=== PATIENT | male | born 1950 | race Caucasian/White ===

== ENCOUNTER 2019-01-28 09:04 | Inpatient (IN) | payer BC, OTHER ==
[2019-01-23 14:39] VITALS: BMI 39.5
--- NOTE | 2019-01-28 07:59 | HP ---
[facility] - Chief Complaint Chief Complaint: right knee pain - Past Medical History Allergies/Adverse Reactions: Allergies Allergy/AdvReac Type Severity Reaction Status Date / Time No Known Allergies Allergy Verified 08/16/11 15:55 - Current Medications Current Medications: Home Medications Medication Instructions Recorded Phenytoin Sodium Extended 300 mg PO DAILY 08/16/11 [Dilantin] Aspirin [Ecotrin] 81 mg PO DAILY 01/23/19 Lisinopril 20 mg PO DAILY 01/23/19 Metoprolol Succinate 25 mg PO BID 01/23/19 Phenytoin Na Extended [Dilantin -] 400 mg PO HS 01/23/19 Rosuvastatin Calcium 5 mg PO DAILY 01/23/19 [facility] Physical Exam - Physical Examination General Appearance: Well Nourished, Well Developed, Alert & Oriented x3 ENT: Clear Lung: Normal air movement Heart: Regular rate & rhythm Extremities: Other (right knee- + swelling, + ttp ,decr rom, nvi, xray show grade 4 tricompartmental djd) Neurological: Intact, Alert, Oriented Satellite Impression/Plan - Impression/Plan Impression: right knee djd Operative Procedure: right eduarda tkr Date to be Performed: 01/28/19
[2019-01-28] MEDS ORDERED: TRANEXAMIC ACID 1000 MG/10 ML VIAL IVPUSH ONE (09:26)
[2019-01-28] MEDS ORDERED: CELECOXIB 200 MG CAPSULE PO ONE (09:26)
[2019-01-28] MEDS ORDERED: CEFAZOLIN 2 GM in DEXTROSE 5%-WATER - 50 ML IVPB ONE (09:26)
[2019-01-28] MEDS ORDERED: MIDAZOLAM HCL 2 MG/2 ML SINGLE DOSE VIAL ONE ×3 (09:29→12:39)
[2019-01-28] MEDS ORDERED: BUPIVACAINE LIPOSOME/PF (EXPAREL) 266 MG/20 ML VIAL ONE (09:29)
[2019-01-28] MEDS ORDERED: SODIUM CHLORIDE 0.9% P/F 10 ML VIAL IJ ONE ×2 (09:30→12:26)
[2019-01-28] MEDS ORDERED: ceFAZolin SODIUM 1 GM VIAL ONE (10:59)
[2019-01-28] MEDS ORDERED: VANCOMYCIN 1,000 MG VIAL (RESTRICTED TO ID ONLY) ONE (10:59)
[2019-01-28] MEDS ORDERED: ONDANSETRON 4 MG/2 ML VIAL IVPUSH PRN ×2 (11:34→13:39)
[2019-01-28] MEDS ORDERED: MAGNESIUM HYDROX 2400MG/30ML ORAL SUSPENSION 30 ML CUP PO PRN (11:34)
[2019-01-28] MEDS ORDERED: MAG HYDROX/AL HYDROX/SIMETH 30 ML UNIT-DOSE CUP PO PRN (11:34)
[2019-01-28] MEDS ORDERED: LACTATED RINGERS SOLUTION 1,000 ML IV SCH (11:45)
[2019-01-28] MEDS ORDERED: ePHEDrine SULFATE 50 MG/1 ML AMPULE ONE (12:13)
[2019-01-28] MEDS ORDERED: PHENYLEPHRINE HCL 10 MG/1 ML SINGLE DOSE VIAL ONE (12:26)
[2019-01-28] MEDS ORDERED: VANCOMYCIN 1,000 MG VIAL (RESTRICTED TO ID ONLY) IVPB ONE (13:07)
--- NOTE | 2019-01-28 13:32 | OP ---
Operative Note - Note: Operative Date: 01/28/19 (esa) Pre-Operative Diagnosis: right knee djd Operation: right eduarda tkr Post-Operative Diagnosis: Same as Pre-op Surgeon: Anurag Cloud Residential Glazier: Daniel Whittaker Anesthesiologist/BEADING MACHINE OPERATOR: Ebenezer Ariza Anesthesia: Spinal, Local Specimens Removed: bone fragments Estimated Blood Loss (mls): 150
[2019-01-28] MEDS ORDERED: oxyCODONE HCL 5 MG TABLET PO PRN (13:39)
[2019-01-28] MEDS ORDERED: PROMETHAZINE HCL 25 MG/1 ML VIAL IVPUSH PRN (13:39)
[2019-01-28] MEDS ORDERED: traMADol HCL 50 MG TABLET PO PRN (13:39)
--- NOTE | 2019-01-28 17:20 | PN ---
Progress Note, Physician Chief Complaint: Right Total Knee Replacement History of Present Illness: Previous notes and events reviewed awake and alert NAD POD#0 R TKR denies chest pain or SOB - Current Medication List Current Medications: Active Medications Acetaminophen (Tylenol -) 650 mg PO Q6H [facility] Stop: 01/31/19 20:59 Al Hydroxide/Mg Hydroxide (Mylanta Oral Suspension -) 30 ml PO Q4H PRN PRN Reason: DYSPEPSIA Aspirin (Asa -) 325 mg PO DAILY@0800 [facility] Fentanyl (Sublimaze Injection -) 50 mcg IVPUSH [id number] PRN PRN Reason: PAIN-PACU ORDER X 4 DOSES ONLY Cefazolin Sodium 3 gm/ (Dextrose) 100 mls @ 100 mls/hr IVPB Q8H [facility] Stop: 01/29/19 03:59 Lactated Ringer's (Lactated Ringers Solution) 1,000 mls @ 125 mls/hr IV ASDIR [facility] Stop: 01/29/19 06:00 Lisinopril (Prinivil) 20 mg PO DAILY [facility] Magnesium Hydroxide (Milk Of Magnesia -) 30 ml PO PRN PRN PRN Reason: CONSTIPATION Metoprolol Succinate (Toprol Xl -) 25 mg PO BID [facility] Multivitamins/Minerals/Vitamin C (Tab-A-Vit -) 1 tab PO DAILY [facility] Ondansetron HCl (Zofran Injection) 4 mg IVPUSH Q6H PRN PRN Reason: NAUSEA Ondansetron HCl (Zofran Injection) 4 mg IVPUSH Q6H PRN PRN Reason: NAUSEA AND/OR VOMITING Oxycodone HCl (Roxicodone -) 5 mg PO Q3H PRN PRN Reason: PAIN LEVEL 4-6 Last Admin: 01/28/19 16:36 Dose: 5 mg Oxycodone HCl (Roxicodone -) 10 mg PO Q3H PRN PRN Reason: PAIN LEVEL 7-10 Pantoprazole Sodium (Protonix -) 40 mg PO DAILY [facility] Phenytoin Sodium (Dilantin -) 400 mg PO HS [facility] Phenytoin Sodium (Dilantin -) 300 mg PO DAILY [facility] Promethazine HCl (Phenergan Injection -) 12.5 mg IVPUSH Q6H PRN PRN Reason: NAUSEA-FOR RESCUE AFTER 15 MIN Rosuvastatin Calcium (Crestor -) 5 mg PO DAILY [facility] Senna/Docusate Sodium (Pericolace -) 2 tablet PO BID [facility] Tramadol HCl (Ultram -) 50 mg PO Q3H PRN PRN Reason: PAIN LEVEL 1 - 3 - Objective Vital Signs: Vital Signs Temperature 97.8 F 01/28/19 14:41 Pulse Rate 86 01/28/19 14:41 Respiratory Rate 16 01/28/19 14:41 Blood Pressure 120/64 01/28/19 14:41 O2 Sat by Pulse Oximetry (%) 96 01/28/19 14:41 Constitutional: Yes: No Distress, Calm Eyes: Yes: Conjunctiva Clear HENT: Yes: Atraumatic Cardiovascular: Yes: Regular Rate and Rhythm Respiratory: Yes: Regular, CTA Bilaterally Gastrointestinal: Yes: Normal Bowel Sounds, Soft Musculoskeletal: Yes: Muscle Weakness Extremities: Yes: WNL Edema: No Wound/Incision: Yes: Dressing Dry and Intact Neurological: Yes: Alert, Oriented Psychiatric: Yes: Alert, Oriented Problem List - Problems (1) Status post total right knee replacement Assessment/Plan: -Ortho on board -POD #0 L TKR -incentive spirometer -pain control -PT -dvt ppx -Cefazolin Code(s): Z96.651 - PRESENCE OF RIGHT ARTIFICIAL KNEE JOINT (2) HTN (hypertension) Assessment/Plan: -Lisinopril Code(s): I10 - ESSENTIAL (PRIMARY) HYPERTENSION (3) Seizure Assessment/Plan: -Dilantin Code(s): R56.9 - UNSPECIFIED CONVULSIONS Assessment/Plan see problem list dvt ppx
[2019-01-28] MEDS: oxyCODONE HCL 5 MG TABLET PO PRN (19:18)
[2019-01-28] MEDS: CEFAZOLIN 3 GM in DEXTROSE 5%-WATER 100 ML IVPB SCH (19:25)
[2019-01-28] MEDS: KETOROLAC TROMETHAMINE 30 MG/1 ML VIAL IVPUSH SCH (21:08)
[2019-01-28] MEDS: ACETAMINOPHEN 325 MG TABLET (FP) PO SCH (21:08)
[2019-01-28] MEDS: SENNOSIDES/DOCUSATE COMBO (SENNA PLUS) TABLET (UD) PO SCH (21:09)
[2019-01-28] MEDS: metoPROLOL SUCCINATE 25 MG TAB.SR.24H (FP) PO SCH (21:09)
[2019-01-28] MEDS: PHENYTOIN NA EXTENDED 100 MG CAPSULE (FP) PO SCH (21:09)
[2019-01-29] MEDS ORDERED: ceFAZolin SODIUM 1 GM VIAL ONE (03:05)
[2019-01-29] MEDS ORDERED: DEXTROSE 5%-WATER 100 ML IVPB ONE (03:05)
[2019-01-29] MEDS: ACETAMINOPHEN 325 MG TABLET (FP) PO SCH ×4 (03:14→21:12)
[2019-01-29] MEDS: KETOROLAC TROMETHAMINE 30 MG/1 ML VIAL IVPUSH SCH ×4 (03:15→21:11)
[2019-01-29] MEDS: CEFAZOLIN 3 GM in DEXTROSE 5%-WATER 100 ML IVPB SCH (03:15)
[2019-01-29] MEDS: oxyCODONE HCL 5 MG TABLET PO PRN ×3 (06:23→17:58)
[2019-01-29 07:35] LABS: HEMATOCRIT 38.3 % (35.4-49); HEMOGLOBIN 12.9 GM/dl (11.7-16.9); MCH 30.6 pg (25.7-33.7); MCHC 33.7 g/dl (32.0-35.9); MEAN CELL VOLUME 90.9 fl (80-96); MEAN PLT VOLUME 8.5 fl (7.5-11.1); PLATELET COUNT 180 K/MM3 (134-434); RBC 4.22 M/mm3 (4.00-5.60); RDW 12.5 % (11.9-15.9); WHITE BLOOD COUNT 10.2 K/mm3 (4.0-10.8)
[2019-01-29] MEDS: ASPIRIN 325 MG TABLET PO SCH (08:04)
--- NOTE | 2019-01-29 08:53 | SPEC ---
DATE OF OPERATION: 01/28/2019 PREOPERATIVE DIAGNOSIS: Degenerative joint disease, right knee. POSTOPERATIVE DIAGNOSIS: Degenerative joint disease, right knee. PROCEDURE: Right total knee replacement with robotic-assisted navigation (Makoplasty). SURGICAL ATTENDING: Anurag Cloud M.D. BEND SORTER: Cherry Dimas ANESTHESIA: Regional and spinal. CLOSURE: A Triathlon knee system with a 6 femur, 6 tibia, 11 polyethylene, 35 patella, number 1 Vicryl to fascia, 0 and 2-0 subcutaneous, 3-0 Monocryl subcuticular with skin glue for skin, 4-0 undyed Vicryl for pin sites. ESTIMATED BLOOD LOSS: Approximately 100 mL. COMPLICATIONS: None. CONDITION: To recovery room in stable condition. DESCRIPTION OF OPERATIVE PROCEDURE: Patient was taken to the operating room on January 28, 2019. Regional and general anesthesia was administered by the anesthesiologist. IV Kefzol and TXA were administered by the anesthesiologist. Well-padded pneumatic tourniquet was placed on the proximal thigh. The right lower extremity was prepped and draped in the usual sterile fashion. The leg was exsanguinated with an Esmarch bandage, and tourniquet was inflated to 275 mmHg. A 12 to 15-cm longitudinal midline incision was incised while centered over the patella. The dissection was carried down to the level of the extensor mechanism with sufficient flaps made to adequately perform the procedure. A medial parapatellar arthrotomy was then performed. We made a cuff of tissue on the patella for later closure. The patella was inverted, the knee was flexed up. The fat pad was excised. The subperiosteal dissection was on the anteromedial proximal tibia around towards the direction of the MCL. The ACL and the PCL were transected and debrided. The meniscal remnants of the medial and lateral meniscus were debrided and removed. This allowed the knee to be able to "be brought forward." The checkpoints were malleted into the tibia and into the femur. Two threaded pins were drilled anteroposteriorly proximal to the knee through the previous incision, through the anterior cortex, then just engaging the posterior cortex. To these pins was assembled the femoral navigation array. One handbreadth below the tibial tubercle, 2 stab incisions were used to drill 2 threaded pins in parallel fashion into the tibia, again through the anterior cortex and just engaging the posterior cortex. To these pins was fastened the tibial arrays. The knee was then registered with the navigation device with center of rotation of the hip, medial and lateral malleoli, both checkpoints, and multiple points on both the femur and the tibia to ensure excellent registration. The navigation device was directed off the "top of the bubbles" on both the femur and the tibia. The navigation passed within less than 0.5 mm to plan. The knee was then thoroughly inspected to remove all osteophytes both medially, laterally, and on the femur and the tibia, and whatever osteophytes were available for dissection. The knee was then taken to extension and to flexion, and stressed in both varus and valgus to assess flexion gaps. The virtual position of the components on the navigation device were then manipulated to optimize the position and to ensure equal gaps in both flexion and extension, and both medially and laterally. The robot was then brought into the field and was registered. The cuts were then made both on the femur and on the tibia as to plan. All osteophytes posteriorly were then removed as well. The gaps were then measured again in flexion and extension to be equal in both flexion and extension and medial and laterally. The femoral notch was then made, as we were doing a posterior stabilizing component, with the appropriate sized box. Trial reduction of the femur achieved excellent [id number] fit. A tibial baseplate of appropriate polyethylene thickness was "floated in the knee." It was ensured to be in the excellent position by navigation devices and was pinned in place. The knee was taken through a range of motion, and found to have excellent stability throughout flexion and extension. The patella was calibrated for thickness and osteotomized down to the appropriate level. The appropriate lollipop was used to drill the lug holes in the patella and the trial button was applied. The knee was taken through a range of motion and found to have excellent tracking of the patella, and patella from full extension to full flexion. Trial components were removed, the keel was punched and drilled, and a sclerotic bone on the tibia was drilled to help with cement interdigitation. The knee was thoroughly irrigated with the pulse antibiotic screen tender helper. The real components were then cemented in using monitored arrangement cement techniques with antibiotic cement, and pressurization and extension. After the cement was hardened, the knee was thoroughly inspected to remove any extra cement. The real polyethylene component was then clipped into place. Range of motion, stability, and tracking were as described earlier. The checkpoints and the pins were removed. The knee was thoroughly irrigated with antibiotic irrigation. Vancomycin powder was placed into the knee for antibiotic prophylaxis. The medial parapatellar arthrotomy was then closed using number 1 Vicryl interrupted suture. After closure of the deep layer, the knee was taken through a range of motion, and found to have excellent stability of the patella with no dislocation and no undue tension on the repair. The subcutaneous was pulse antibiotic irrigated, and was then closed with 2-0 Vicryl, 3-0 Monocryl subcuticular with the skin glue for the skin. The distal tibial pin site was irrigated thoroughly as well and then closed with 4-0 undyed Vicryl. A sterile Aquacel dressing was applied, followed by a Morton dressing. Tourniquet was deflated. Total tourniquet time was approximately 75 minutes. No complications. Patient was awakened from anesthesia and transferred to recovery room in stable condition. Postoperative x-rays revealed excellent position of the components. Nan [id number]
--- NOTE | 2019-01-29 08:54 | PN ---
Progress Note (short form) - Note Progress Note: Post op day#1.S/P Right total knee MAKOplasty under spinal anesthesia with adductor canal and selective tibial N block uneventful.Patient stable and c/o pain score of 5-6/10 for which she is on medication.No any anesthesia related problem.Patient Dc from the anesthesia care.
[2019-01-29] MEDS: metoPROLOL SUCCINATE 25 MG TAB.SR.24H (FP) PO SCH ×2 (09:04→21:11)
[2019-01-29] MEDS: PHENYTOIN NA EXTENDED 100 MG CAPSULE (FP) PO SCH ×2 (09:04→21:11)
[2019-01-29] MEDS: PANTOPRAZOLE 40 MG TABLET (FP) PO SCH (09:04)
[2019-01-29] MEDS: SENNOSIDES/DOCUSATE COMBO (SENNA PLUS) TABLET (UD) PO SCH ×2 (09:04→22:56)
[2019-01-29] MEDS: MULTIVITAMINS (DAILY MVI) TABLET (FP) PO SCH (09:04)
[2019-01-29] MEDS: LISINOPRIL 20 MG TABLET (FP) PO SCH (09:04)
[2019-01-29] MEDS: ROSUVASTATIN CA 5 MG TABLET (FP) PO SCH (09:04)
--- NOTE | 2019-01-29 09:08 | PN ---
Progress Note (short form) - Note Progress Note: Ortho Pt seen and examined s/p right eduarda tkr pod #1 Selected Entries 01/29/19 08:57 Temperature 99.2 F Pulse Rate 82 Respiratory 14 Rate Blood Pressure 142/70 Laboratory Tests 01/29/19 07:00 WBC 10.2 Hgb 12.9 Hct 38.3 Plt Count 180 dressing c/d/i, calf soft, nt rom 0-30, nvi a/p PT dvt ppx pain control d/c home tomorrow if stable
--- NOTE | 2019-01-29 09:08 | PN ---
Progress Note, Physician Chief Complaint: AWAKE ALERT SITTING UP IN A CHAIR C/O PAIN TO RIGHT KNEE DENIES CP/SOB +URINE OUTPUT NO BOWEL MOVEMENT YET - Current Medication List Current Medications: Active Medications Acetaminophen (Tylenol -) 650 mg PO Q6H [facility] Stop: 01/31/19 20:59 Last Admin: 01/29/19 03:14 Dose: 650 mg Al Hydroxide/Mg Hydroxide (Mylanta Oral Suspension -) 30 ml PO Q4H PRN PRN Reason: DYSPEPSIA Aspirin (Asa -) 325 mg PO DAILY@0800 [facility] Last Admin: 01/29/19 08:04 Dose: 325 mg Ketorolac Tromethamine (Toradol Injection -) 30 mg IVPUSH Q6H [facility] Stop: 02/02/19 21:14 Last Admin: 01/29/19 03:15 Dose: 30 mg Lisinopril (Prinivil) 20 mg PO DAILY [facility] Magnesium Hydroxide (Milk Of Magnesia -) 30 ml PO PRN PRN PRN Reason: CONSTIPATION Metoprolol Succinate (Toprol Xl -) 25 mg PO BID [facility] Last Admin: 01/28/19 21:09 Dose: 25 mg Multivitamins/Minerals/Vitamin C (Tab-A-Vit -) 1 tab PO DAILY [facility] Ondansetron HCl (Zofran Injection) 4 mg IVPUSH Q6H PRN PRN Reason: NAUSEA Oxycodone HCl (Roxicodone -) 5 mg PO Q3H PRN PRN Reason: PAIN LEVEL 4-6 Last Admin: 01/28/19 16:36 Dose: 5 mg Oxycodone HCl (Roxicodone -) 10 mg PO Q3H PRN PRN Reason: PAIN LEVEL 7-10 Last Admin: 01/29/19 06:23 Dose: 10 mg Pantoprazole Sodium (Protonix -) 40 mg PO DAILY [facility] Phenytoin Sodium (Dilantin -) 400 mg PO HS [facility] Last Admin: 01/28/19 21:09 Dose: 400 mg Phenytoin Sodium (Dilantin -) 300 mg PO DAILY [facility] Rosuvastatin Calcium (Crestor -) 5 mg PO DAILY [facility] Senna/Docusate Sodium (Pericolace -) 2 tablet PO BID [facility] Last Admin: 01/28/19 21:09 Dose: 2 tablet Tramadol HCl (Ultram -) 50 mg PO Q3H PRN PRN Reason: PAIN LEVEL 1 - 3 Last Admin: 01/28/19 17:58 Dose: 50 mg - Objective Vital Signs: Vital Signs Temperature 99.2 F 01/29/19 08:57 Pulse Rate 82 01/29/19 08:57 Respiratory Rate 14 01/29/19 08:57 Blood Pressure 142/70 01/29/19 08:57 O2 Sat by Pulse Oximetry (%) 97 01/29/19 06:00 Constitutional: Yes: Mild Distress Cardiovascular: Yes: Regular Rate and Rhythm Respiratory: Yes: WNL Gastrointestinal: Yes: Soft, Abdomen, Obese Genitourinary: Yes: WNL Musculoskeletal: Yes: Other Extremities: Yes: Other Integumentary: Yes: WNL Wound/Incision: Yes: Dressing Dry and Intact Neurological: Yes: WNL ...Motor Strength: RLE Psychiatric: Yes: WNL Labs: CBC, BMP 01/29/19 07:00 Problem List - Problems (1) HTN (hypertension) Code(s): I10 - ESSENTIAL (PRIMARY) HYPERTENSION (2) Seizure Code(s): R56.9 - UNSPECIFIED CONVULSIONS (3) Status post total right knee replacement Code(s): Z96.651 - PRESENCE OF RIGHT ARTIFICIAL KNEE JOINT Assessment/Plan NEURO CHECKS Q 4HRS FOR SEIZURE PRECAUTION PAIN CONTROL PT EVAL/OOB-CHAIR HOME FOR DISPOSITION WITH ROBOTICS TECHNICIAN/PT F/U WITH YOUR PMD
[2019-01-30] MEDS: oxyCODONE HCL 5 MG TABLET PO PRN (01:34)
[2019-01-30] MEDS: ACETAMINOPHEN 325 MG TABLET (FP) PO SCH ×2 (03:00→09:39)
[2019-01-30] MEDS: KETOROLAC TROMETHAMINE 30 MG/1 ML VIAL IVPUSH SCH ×2 (03:00→09:40)
[2019-01-30] MEDS: ASPIRIN 325 MG TABLET PO SCH (08:03)
[2019-01-30 08:19] LABS: HEMATOCRIT 36.5 % (35.4-49); HEMOGLOBIN 12.2 GM/dl (11.7-16.9); MCH 30.4 pg (25.7-33.7); MCHC 33.5 g/dl (32.0-35.9); MEAN CELL VOLUME 90.8 fl (80-96); MEAN PLT VOLUME 8.8 fl (7.5-11.1); PLATELET COUNT 175 K/MM3 (134-434); RBC 4.03 M/mm3 (4.00-5.60); RDW 12.1 % (11.9-15.9)
--- NOTE | 2019-01-30 08:27 | DS ---
Physical Examination Vital Signs: Vital Signs Temperature 99.0 F 01/30/19 05:55 Pulse Rate 85 01/30/19 05:55 Respiratory Rate 17 01/30/19 05:55 Blood Pressure 122/60 01/30/19 05:55 O2 Sat by Pulse Oximetry (%) 97 01/30/19 05:55 Labs: CBC, BMP 01/30/19 07:20 Discharge Summary Problems reviewed: Yes Reason For Visit: OSTEOARTHRITIS Current Active Problems HTN (hypertension) (Acute) Seizure (Acute) Status post total right knee replacement (Acute) Procedures: Principal: right tkr Hospital Course: admitted for elective left eduarda thr, post-op as per protocol, stable for d/c Condition: Good - Instructions Diet, Activity, Other Instructions: Post-op Instructions-Total Knee Replacement Call the office for a follow-up appointment in 1 week - [phone] Aspirin 325mg daily for 6 weeks. Pain medication was sent into your pharmacy. Apply Graduated Compression Stockings (TEDs) to both lower extremities- remove daily for hygiene ONLY Apply Sequential Compression Device (SCDs) to both Lower extremities remove for PT and hygiene ONLY Apply cold packs to affected area for 15 minutes every 2 hours. Physical Therapist will come to your home for the first 5 days. You will be set up with outpatient PT at your first post-operative visit. Patient may ambulate as tolerated-encourage self care (at least every 2-3 hours while awake) with walker or cane Maintain Aquacel (waterproof) dressing to operative wound (will be removed by surgeon at first office visit) Shower with Aquacel dressing in place-if Aquacel integrity compromised, remove and apply dry sterile dressing and notify Orthopedist. DO NOT SHOWER unless Orthopedists approves without Aquacel dressing CONTACT THE OFFICE FOR ANY CHANGE IN YOUR CONDITION (for example-fever greater than 102 degrees, excessive bleeding from operative site, purulent drainage, severe swelling or pain) GO TO THE EMERGENCY ROOM IF THERE IS A MEDICAL EMERGENCY Knee Precautions: * Keep a rolled towel under affected heel while in bed or chair (to keep knee in extension) * Keep affected leg elevated except during mealtimes * DO NOT PLACE PILLOW UNDER AFFECTED KNEE * If you have any questions, please do not hesitate to call the office - . Referrals: Anurag Cloud MD [Staff Physician] - Disposition: VNS/HOME HEALTH CARE - Home Medications Comprehensive Discharge Medication List: Ambulatory Orders Phenytoin Sodium Extended [Dilantin] 300 mg PO DAILY 08/16/11 Aspirin [Ecotrin] 81 mg PO DAILY 01/23/19 Lisinopril 20 mg PO DAILY 01/23/19 Metoprolol Succinate 25 mg PO BID 01/23/19 Phenytoin Na Extended [Dilantin -] 400 mg PO HS 01/23/19 Rosuvastatin Calcium 5 mg PO DAILY 01/23/19 Aspirin [ASA -] 325 mg PO DAILY@0800 tablet 01/28/19 Oxycodone HCl/Acetaminophen [Percocet 5-325 mg Tablet -] 1 - 2 tab PO Q6H #50 tab MDD 8 01/28/19
--- NOTE | 2019-01-30 08:27 | PN ---
Progress Note (short form) - Note Progress Note: Ortho Pt seen and examined s/p right eduarda tkr pod #2 Selected Entries 01/30/19 05:55 Temperature 99.0 F Pulse Rate 85 Respiratory 17 Rate Blood Pressure 122/60 Laboratory Tests 01/30/19 07:20 WBC Pending Hgb Pending Hct Pending Plt Count Pending dressing c/d/i, calf soft, nt rom 0-50, nvi a/p PT dvt ppx pain control d/c home today f/u in 1 week
--- NOTE | 2019-01-30 09:00 | PN ---
Progress Note, Physician Chief Complaint: awake alert still has some pain to knee however getting better. - Current Medication List Current Medications: Active Medications Acetaminophen (Tylenol -) 650 mg PO Q6H [facility] Stop: 01/31/19 20:59 Last Admin: 01/30/19 03:00 Dose: 650 mg Al Hydroxide/Mg Hydroxide (Mylanta Oral Suspension -) 30 ml PO Q4H PRN PRN Reason: DYSPEPSIA Aspirin (Asa -) 325 mg PO DAILY@0800 [facility] Last Admin: 01/30/19 08:03 Dose: 325 mg Ketorolac Tromethamine (Toradol Injection -) 30 mg IVPUSH Q6H [facility] Stop: 02/02/19 21:14 Last Admin: 01/30/19 03:00 Dose: 30 mg Lisinopril (Prinivil) 20 mg PO DAILY [facility] Last Admin: 01/29/19 09:04 Dose: 20 mg Magnesium Hydroxide (Milk Of Magnesia -) 30 ml PO PRN PRN PRN Reason: CONSTIPATION Metoprolol Succinate (Toprol Xl -) 25 mg PO BID [facility] Last Admin: 01/29/19 21:11 Dose: 25 mg Multivitamins/Minerals/Vitamin C (Tab-A-Vit -) 1 tab PO DAILY [facility] Last Admin: 01/29/19 09:04 Dose: 1 tab Ondansetron HCl (Zofran Injection) 4 mg IVPUSH Q6H PRN PRN Reason: NAUSEA Oxycodone HCl (Roxicodone -) 5 mg PO Q3H PRN PRN Reason: PAIN LEVEL 4-6 Last Admin: 01/28/19 16:36 Dose: 5 mg Oxycodone HCl (Roxicodone -) 10 mg PO Q3H PRN PRN Reason: PAIN LEVEL 7-10 Last Admin: 01/30/19 01:34 Dose: 10 mg Pantoprazole Sodium (Protonix -) 40 mg PO DAILY [facility] Last Admin: 01/29/19 09:04 Dose: 40 mg Phenytoin Sodium (Dilantin -) 400 mg PO HS [facility] Last Admin: 01/29/19 21:11 Dose: 400 mg Phenytoin Sodium (Dilantin -) 300 mg PO DAILY [facility] Last Admin: 01/29/19 09:04 Dose: 300 mg Rosuvastatin Calcium (Crestor -) 5 mg PO DAILY [facility] Last Admin: 01/29/19 09:04 Dose: 5 mg Senna/Docusate Sodium (Pericolace -) 2 tablet PO BID [facility] Last Admin: 01/29/19 22:56 Dose: 2 tablet Tramadol HCl (Ultram -) 50 mg PO Q3H PRN PRN Reason: PAIN LEVEL 1 - 3 Last Admin: 01/28/19 17:58 Dose: 50 mg - Objective Vital Signs: Vital Signs Temperature 99.0 F 01/30/19 05:55 Pulse Rate 85 01/30/19 05:55 Respiratory Rate 17 01/30/19 05:55 Blood Pressure 122/60 01/30/19 05:55 O2 Sat by Pulse Oximetry (%) 97 01/30/19 05:55 Constitutional: Yes: Mild Distress Cardiovascular: Yes: Regular Rate and Rhythm Respiratory: Yes: WNL Gastrointestinal: Yes: WNL Musculoskeletal: Yes: Other Wound/Incision: Yes: Clean/Dry, Dressing Dry and Intact Neurological: Yes: WNL Labs: CBC, BMP 01/30/19 07:20 Problem List - Problems (1) HTN (hypertension) Code(s): I10 - ESSENTIAL (PRIMARY) HYPERTENSION (2) Seizure Code(s): R56.9 - UNSPECIFIED CONVULSIONS (3) Status post total right knee replacement Code(s): Z96.651 - PRESENCE OF RIGHT ARTIFICIAL KNEE JOINT Assessment/Plan NEURO CHECKS Q 4HRS FOR SEIZURE PRECAUTION PAIN CONTROL PT EVAL/OOB-CHAIR HOME FOR DISPOSITION WITH STUNT PERFORMER/PT F/U WITH YOUR PMD DC PLANNING
[2019-01-30 09:32] VITALS: BP 142/66; PULSE 84; TEMP 97.5
[2019-01-30] MEDS: SENNOSIDES/DOCUSATE COMBO (SENNA PLUS) TABLET (UD) PO SCH (09:41)
[2019-01-30] MEDS: LISINOPRIL 20 MG TABLET (FP) PO SCH (09:41)
[2019-01-30] MEDS: PANTOPRAZOLE 40 MG TABLET (FP) PO SCH (09:41)
[2019-01-30] MEDS: metoPROLOL SUCCINATE 25 MG TAB.SR.24H (FP) PO SCH (09:42)
[2019-01-30] MEDS: MULTIVITAMINS (DAILY MVI) TABLET (FP) PO SCH (09:42)
[2019-01-30] MEDS: ROSUVASTATIN CA 5 MG TABLET (FP) PO SCH (09:42)
[2019-01-30] MEDS: PHENYTOIN NA EXTENDED 100 MG CAPSULE (FP) PO SCH (10:10)
--- NOTE | 2019-01-31 15:35 | PATH ---
Surgical Pathology Report Patient Name: CHOCO DURBIN Med. Rec. #: [id number] /Age/Gender: 1950 (Age: 68) / M Account: [id number] Location: [facility] Taken: 01/28/2019 Received: 01/28/2019 Reported: 01/31/2019 Physicians: Anurag Cloud M.D. Specimen(s) Received RIGHT KNEE BONES Clinical History Right knee osteoarthritis Final Diagnosis KNEE BONES, RIGHT, TOTAL KNEE REPLACEMENT: DEGENERATIVE JOINT DISEASE. Electronically Signed Yazmin Acevedo M.D. Gross Description Received in formalin labeled "right knee bones," is a 13.5 x 9.5 x 2.7 cm aggregate of multiple portions of bone and soft tissue. The tibial plateau measures 8.3 x 6.0 x 1.8 cm. There are multiple areas of eburnation present, measuring up to 2.0 cm in greatest dimension. The remaining articular surfaces are jeffers-brown and diffusely granular. The underlying trabecular bone is yellow and hard. Field Contact Technician sections are submitted in one cassette, following decalcification. 01/29/2019 saudi01/29/2019
== END 2019-01-30 11:07 | disposition home health service (06) | DRG 470 ==
LOC: FM/S 09:04
PROVIDERS: ADMIT Orthopaedic Surgery; ATTEND Orthopaedic Surgery
PROC: 8E0Y0CZ Robotic Assisted Procedure of Lower Extremity, Open Approach (ICD-10-PCS; 2019-01-28)
PROC: 0SRC0J9 Replacement of Right Knee Joint with Synthetic Substitute, Cemented, Open Approach (ICD-10-PCS; principal; 2019-01-28 11:53)
DX: M17.11 Unilateral primary osteoarthritis, right knee (principal); I10 Essential (primary) hypertension; R56.9 Unspecified convulsions
CPT/HCPCS: 36415; 73560-TC-RT-FY; 85027; 88304-TC; 88311-TC; 94760; 97116-GP